=== PATIENT | female | born 1945 ===

== ENCOUNTER → 2016-07-17 | Day surgery (SDC) | payer BC ==
[~2016-07-17] VITALS: Ht 152.4 cm; Wt 68.0 kg
[2016-07-17] VITALS (8 sets, daily range): BP systolic 127–151; BP diastolic 71–80
[~2016-07-17] MED LIST: ALEVE220 M2 PO; ATORVASTATIN CA20 MG ORAL; Akten 3.5% 1ml Btl ONE; BENAZEPRIL HCL20 MG ORAL; BSS 15ml BTL ONE; BSS 500ml btl ONE; CALCIUM600 M1 PO; Dexamethasone 4mg/ml vial ONE; Diclofenac Sod 0.1% Op Soln ONE; EPINEPHrine 1mg/1ml Amp ONE; Gatifloxacin Opth Solution 0.5% ONE; HUMALOG MI100 UNIT/6 SQ; LR 1000ml ONE; Lidocaine 1% MPF 10mg/ml 5ml ONE; Midazolam 2mg/2ml Inj ONE; Phenylephrine 2.5% Op Soln ONE; Povidone-Iodine 5% opth solution ONE; Sodium Hyaluronate 14 mg/ml 0.85ml ONE; TRULICITY0.75 MG/0. SQ; Tobradex Opth Susp 2.5ml ONE; Tropicamide 1% Opth Soln ONE
[2016-07-17] MEDS: Diclofenac Sod 0.1% Op Soln LEFT EYE SCH ×3 (06:18→06:42)
[2016-07-17] MEDS: Tobradex Opth Susp 2.5ml LEFT EYE SCH ×3 (06:18→06:41)
[2016-07-17] MEDS: Phenylephrine 2.5% Op Soln LEFT EYE SCH ×3 (06:18→06:41)
[2016-07-17] MEDS: Tropicamide 1% Opth Soln LEFT EYE SCH ×3 (06:19→06:41)
[2016-07-17] MEDS: Akten 3.5% 1ml Btl LEFT EYE SCH ×3 (06:19→06:41)
[2016-07-17] MEDS: Gatifloxacin Opth Solution 0.5% LEFT EYE SCH ×3 (06:20→06:42)
--- NOTE | 2016-07-17 07:37 | Pre-Procedure Note/Attestation ---
Pre-Procedure Note/Attestation Complete Prior to Procedure Planned Procedure: left Procedure Narrative: cataract extraction with implant left eye Indications for Procedure Pre-Operative Diagnosis: cataract left eye Attestation I attest that I discussed the nature of the procedure; its benefits; risks and complications; and alternatives (and the risks and benefits of such alternatives ), prior to the procedure, with the patient (or the patient's legal car sales representative). I attest that, if there was a reasonable possibility of needing a blood transfusion, the patient (or the patient's legal car sales representative) was given the [facility] standardized written summary, pursuant to the Scott Wade Blood Safety Act ([place] Health and Safety Code # 1645, as amended). I attest that I re-evaluated the patient just prior to the surgery and that there has been no change in the patient's H&P, except as documented below: MELIZA ARORA Jul 17, 2016 07:37
--- NOTE | 2016-07-17 08:33 | Anethesia Preoperative Eval ---
Anesthesia Pre-op PMH/ROS General Date of Evaluation: Jul 17, 2016 Time of Evaluation: 08:15 Anesthesiologist: tim ASA Score: ASA 2 Mallampati Score Class I : Soft palate, uvula, fauces, pillars visible Class II: Soft palate, uvula, fauces visible Class III: Soft palate, base of uvula visible Class IV: Only hard plate visible Mallampati Classification: Class II Surgeon: sherice Diagnosis: cataract left eye Surgical Procedure: cataract extraction left eye Anesthesia History: none Family History: no anesthesia problems Allergies: Coded Allergies: CODEINE (Verified Allergy, Severe, vomiting; dizziness, 04/02/16) PENICILLINS (Verified Allergy, Severe, sick, 04/02/16) Medications: see eMAR Past Medical History Cardiovascular: Reports: HTN Pulmonary: Denies: COPD, EREN, asthma, other Gastrointestinal/Genitourinary: Denies: CRI, ESRD, GERD, other Neurologic/Psychiatric: Denies: CVA, TIA, dementia, depression/anxiety, other Endocrine: Reports: DM - fsb = 108 this am HEENT: Reports: cataract (L) Hematology/Immune: Denies: DVT, anemia, bleeding disorder, other Musculoskeletal/Integumentary: Denies: DDD, DJD, OA, RA, edema, other PMH Narrative: cataract extraction right eye Anesthesia Pre-op Phys. Exam Physician Exam Last Vital Signs Date Time Temp Pulse Resp B/P Pulse Ox O2 Delivery O2 Flow Rate FiO2 07/17/16 06:25 98.0 65 18 151/76 99 Room Air Constitutional: NAD Neurologic: CN 2-12 intact Cardiovascular: RRR Respiratory: CTA Gastrointestinal: S/NT/ND Airway Exam Mallampati Classification 2 Mallampati Score: Class II MO: full Neck: normal ROM: full Dentures: no lower, no upper Anesthesia Pre-op A/P Studies Pre-op Studies: EKG - sr Risk Assessment & Plan Plan: mac Status Change Before Surgery: No Pre-Antibiotics Drug: none JESUS MANUEL EVERETT CRNA Jul 17, 2016 08:33
--- NOTE | 2016-07-17 08:42 | Brief Operative Note ---
Immediate Post Operative Note Operative Note Pre-op Diagnosis: cataract left eye Procedure: phacoemulsification of cataract with implant left eye Post-op Diagnosis: same as pre-op Surgeon: meliza smiley Job Analyst: none Anesthesiologist: yuko parker Anesthesia: MAC Specimen: none Complications: none Condition: stable Estimated Blood Loss: none Drains: none Implant(s) used?: Yes MELIZA SMILEY Jul 17, 2016 08:42
--- NOTE | 2016-07-17 09:12 | Immediate Post-Op Evaluation ---
Immediate Post-Op Evalulation Immediate Post-Op Evalulation Procedure: cataract left eye extraction Date of Evaluation: Jul 17, 2016 Time of Evaluation: 08:40 IV Fluids: 300 Blood Pressure Systolic: 144 Blood Pressure Diastolic: 80 Pulse Rate: 75 Respiratory Rate: 14 Temperature (Fahrenheit): 98.4 Nausea: No Vomiting: No Complications none Patient Status: awake, patent Hydration Status: adequate Drug: none Given Within 1 Hr of Incision: JESUS MANUEL Edmond CRNA Jul 17, 2016 09:12
--- NOTE | 2016-07-17 09:29 | 48 Hour Post Anesthesia Eval ---
Post Anesthesia Evaluation Procedure: cataract left eye extraction Date of Evaluation: Jul 17, 2016 Time of Evaluation: 09:28 Blood Pressure Systolic: 129 0: 71 Pulse Rate: 67 Respiratory Rate: 14 O2 Sat by Pulse Oximetry: 98 Airway: patent Nausea: No Vomiting: No Hydration Status: adequate Cardiopulmonary Status: normal Mental Status/LOC: patient returned to baseline Post-Anesthesia Complications: none Follow-up care needed: N/A JESUS MANUEL EVERETT CRNA Jul 17, 2016 09:29
--- NOTE | 2016-07-17 17:58 | Operative Note - Dictated ---
DATE OF OPERATION: 07/17/2016 PREOPERATIVE DIAGNOSIS: Cataract, left eye. POSTOPERATIVE DIAGNOSIS: Cataract, left eye. PROCEDURE: Phacoemulsification cataract left eye with placement of posterior chamber intraocular lens. SURGEON: Jorge Simpson M.D. SCREEN AND CYCLONE REPAIRER: None. ANESTHESIA: MAC/topical. ANESTHESIOLOGIST: Alice Doherty CRNA INDICATION FOR PROCEDURE: Poor vision, left eye. DESCRIPTION OF FINDINGS: Nuclear sclerotic cataract, left eye. DESCRIPTION OF PROCEDURE: The patient received a topical anesthetic block consisting of 3.5% Akten eye drops. The eye was prepped and draped in usual manner. A lid speculum was placed. An operating Zeiss microscope was positioned. A temporal corneal groove was made with a yosvany blade. A SuperSharp blade. A stab incision at the 6 o'clock position. A 0.1 mL of 1% nonpreserved intracameral lidocaine was injected. Healon was instilled into the anterior chamber and 2.5/2.8 mm trapezoidal yosvany blade was used to complete the temporal corneal wound. A cystotome was used to create an anterior capsular flap. Utrata forceps were used to complete the capsulorrhexis. BSS on a cannula was used to hydrodissect the nucleus. The lens nucleus phacoemulsified in a phaco-fracture technique. Remaining cortical material was removed with the I/A and the posterior capsule was polished with the I/A on Cap vac. Healon was instilled in a capsular bag and anterior chamber, and an Hannah foldable one-piece posterior chamber intraocular lens model ZCB00, power 22.0 diopter, serial #[id number] was placed in the injector. The lens was put in the capsular bag. The I/A tip was used to remove the Healon and position the lens. The wound edge was hydrated with BSS and a blunt-tipped cannula. The wound was checked and found to be watertight. The lid speculum was removed. A drop of TobraDex and Zymaxid was placed. A clear plastic shield was taped over the eye. The patient tolerated the procedure well and left operating room in good condition. Jorge Simpson M.D. ([facility] [place]) DR: ELIZA JOB#: [id number] CC: Kayleen Brizuela
== END | disposition home or self-care (01) ==
LOC: SUR 05:48
DX: H25.12 Age-related nuclear cataract, left eye (principal); I10 Essential (primary) hypertension; E11.40 Type 2 diabetes mellitus with diabetic neuropathy, unspecified; Z79.4 Long term (current) use of insulin; K21.9 Gastro-esophageal reflux disease without esophagitis; E78.5 Hyperlipidemia, unspecified; R42 Dizziness and giddiness; Z79.899 Other long term (current) drug therapy; Z88.5 Allergy status to narcotic agent; Z88.8 Allergy status to other drugs, medicaments and biological substances; Z88.0 Allergy status to penicillin; Z90.710 Acquired absence of both cervix and uterus; Z90.79 Acquired absence of other genital organ(s)
CPT/HCPCS: 66984; 82962; J0171; J1100; J2250; J7120; V2632; 94003; 94150